=== PATIENT | male | born 1955 | race Caucasian/White ===

== ENCOUNTER 2016-08-16 11:05 | Day surgery (SDC) | payer BC ==
[2016-08-14 18:25] LABS: BASOPHILS 0.3 %; BASOPHILS ABSOLUTE 0.03 10/3/uL (0.0-0.16); EOSINOPHILS 1.6 %; EOSINOPHILS ABSOLUTE 0.14 10/3/uL (0.0-0.53); IMMATURE GRANULOCYTES 0.3 %; IMMATURE GRANULOCYTES ABSOLUTE 0.03 10/3/uL (0.0-0.11); LYMPHOCYTES 25.8 %; LYMPHOCYTES ABSOLUTE 2.27 10/3/uL (0.67-4.30); MEAN CORPUS HGB CONC 34.9 g/dL (32.0-36.0); MEAN CORPUSCULAR HEMOGLOB 33.3 pg (26.0-34.0); MEAN CORPUSCULAR VOLUME 95.4 fL (80-100); MEAN PLATELET VOLUME 9.1 fL (9.2-13.0); MONOCYTES 11.8 %; MONOCYTES ABSOLUTE 1.04 10/3/uL (0.21-1.20); NEUTROPHILS 60.2 %; PLATELET COUNT 272 10/3/uL (150-400); RBC DISTRIBUTION WIDTH 12.5 % (12.0-16.0); WHITE BLOOD CELLS 8.8 10/3/uL (4.5-10.5)
[2016-08-14 18:28] LABS: HEMATOCRIT 45.8 % (40.0-51.0); MANUAL DIFF NO %
[2016-08-14 18:51] LABS: BUN (BLOOD UREA NITROGEN) 15 MG/DL (6-23); CALCIUM, SERUM 9.7 MG/DL (8.5-10.4); CHLORIDE, SERUM 105 MMOL/L (96-112); CO2 (CARBON DIOXIDE) 28 MMOL/L (24-34); CREATININE 0.95 MG/DL (0.70-1.30); GFR AFRICAN AMERICAN 98 ML/MIN (>=60); GFR NON AFRICAN AMERICAN 85 ML/MIN (>=60); GLUCOSE, SERUM 85 MG/DL (60-99); SGOT(AST) 15 U/L (5-40); SGPT(ALT) 32 U/L (5-65); SODIUM, SERUM 140 MMOL/L (135-148); TOTAL PROTEIN 7.3 G/DL (6.0-8.5)
[2016-08-14 18:54] LABS: A/G RATIO 1.4 (0.7-1.9); ALBUMIN 4.2 G/DL (3.5-5.0); ALKALINE PHOSPHATASE 97 U/L (45-117); GLOBULIN 3.1 G/DL (2.5-4.1); TOTAL BILIRUBIN 0.5 MG/DL (0-1.2)
--- NOTE | ~2016-08-16 | OP ---
Record Of Operation [facility] [address] [place]. [address] NAME: TUYET MUNGUIA : 51 STATUS : [facility]#: [id number] AGE: 61 ADM/REG DATE : 08/16/16 MR#: [id number] REPORT SERV DATE: 08/16/16 DICTATED BY: JACKELINE FONTANEZ JR. DATE: 08/16/16 REPORT STATUS : Draft TRANSCRIBED BY: JOANNA DATE: 08/16/16 DATE OF PROCEDURE: 08/16/2016 SURGEON: Jackeline Fontanez M.D. [employer]ARE[employer] SERVICES REPRESENTATIVE: [address] PROCEDURE: Hemorrhoidectomy (internal-external) x2. PREOPERATIVE DIAGNOSIS: Grade 4 hemorrhoids. POSTOPERATIVE DIAGNOSIS: Grade 4 hemorrhoids. ANESTHESIA: General. INDICATIONS: The patient has history of hemorrhoidectomy in the past in another facility. He developed recurrent symptomatic hernias which prolapsed, which is irreducible with bleeding and pain and hemorrhoidectomy was indicated. FINDINGS: On exploration of the area, there were significant hemorrhoidal groups at approximately 10 o'clock position and 12 to 1 there was some distortion of the previous surgery. There was also some extensive polyp-like tissue. All of which were excised with hemorrhoidal groups. No other significant hemorrhoidal groups were identified and no other significant abnormalities of the distal rectum. DESCRIPTION OF PROCEDURE: With adequate general anesthesia, the patient was placed in the prone roselia-knife position. The buttocks were spread. The rectum was dilated 4 fingerbreadths and the anoscope was introduced. It was cleansed with saline and Betadine. Then, the stay sutures of 3-0 Monocryl was placed at the base of each hemorrhoid group. Elliptical incisions were outlined to remove the mucosa and hemorrhoidal tissue along with the external tags and this material was submitted to Pathology. Defects were closed with running locking sutures of 3-0 Monocryl. Hemostasis was assured. A Gel-Foam Nupercaine pack was placed along with a sterile gauze pad. He left the operating room in satisfactory condition. ESTIMATED BLOOD LOSS: 30 mL. THOMAS/JOANNA Jackeline Fontanez Jr., M.D. / [id number] Record Of Operation [place] [address] [address] [facility] [place] [address] NAME: TUYET MUNGUIA : 51 STATUS : [facility]#: [id number] AGE: 61 ADM/REG DATE : 08/16/16 MR#: [id number] REPORT SERV DATE: 08/16/16 DICTATED BY: JACKELINE FONTANEZ JR. DATE: 08/16/16 REPORT STATUS : Draft TRANSCRIBED BY: MODL DATE: 08/16/16 CC: Ashwin Goodwin Jr., MD
[~2016-08-16 11:05] MED LIST: COREG3 PO; KLOR-CON M2020 MEQ PO; NORV10 PO; PCET PO
== END 2016-08-16 19:53 | disposition home or self-care (01) ==
LOC: SDC 11:05
PROVIDERS: Specialist
PROC: 06BY0ZC Excision of Hemorrhoidal Plexus, Open Approach (ICD-10-PCS; principal; 2016-08-16 13:15)
DX: K64.3 Fourth degree hemorrhoids (principal); I10 Essential (primary) hypertension; E78.00 Pure hypercholesterolemia, unspecified; F32.9 Major depressive disorder, single episode, unspecified; Z79.899 Other long term (current) drug therapy; Z98.890 Other specified postprocedural states
CPT/HCPCS: 80053; 85025; 88304; 93005; A9270-GY; J0690; J1170; J2250; J2405; J2710; J3010